=== PATIENT | female | born 1985 | race Caucasian/White ===

== ENCOUNTER 2018-01-12 22:35 | Inpatient (IN) | payer MEDICAID, OTHER, SELFPAY ==
[2018-01-12 23:35] VITALS: BMI 27.1
--- NOTE | 2018-01-13 00:14 | PDOC.FPROB ---
FMR OB H&P: HPI - History of Present Illness Chief Complaint: CTX Indentification: 32yo @ 38.3wks History of Present Illness: This is a 32yo @ 38.3wks by LMP/8.6wk US presenting with CTX. Patient states she began having CTX around 1000 this AM and they have persisted throughout the day. She states she has felt CTX every 10 min. Patient endorses + FM, no LOF, discharge, or vag bleeding. Denies GOMEZ, vision changes, LE swelling. Patient has a repeat CSection scheduled for this Friday. Primary Care Physician: Christiano FMR OB H&P: Current - Care : 3 Para: 2 Gestational age: 38.3wks Due date: repeat c section scheduled for 01/16/18 Dating Criteria: LMP 8.6wk US - OB Labs Blood type: O RH: positive Antibody Screen: negative HIV: negative RPR: negative HepBsAg: negative Rubella: immune Quad screen: unknown Urine drug screen: not done Gonorrhea: negative Chlamydia: negative Pap Smear: wnl on 06/16/17 1 hour gtt: 80 GBS: unknown H&H: 12, 35.5 Platelets: 124 - First Trimester Ultrasound First trimester: position: vertex, female gender, posterior placenta, no abnormalities - Anatomy Survey Anatomy survey: EFW: 64%, FMR OB H&P: History - Past Medical History PMH: none - OB History OB History: G1 - PLTCS for arrest of descent G2 - RLTCS, failed TOLAC @ 36.1wks, spontaneous PTL - [employer] History [employer] History: No hx of abnormal pap, pap this year wnl; menses @ 15/regular, no hx of STI - Surgical History Sx History: CS X 2 - Social History Social History: Denies tobacco, drug or alcohol use - Family History Family History: No hx of T21 or other genetic/inheritable disorders FMR OB H&P: Medications - Current Home Medications: Medication Instructions Recorded Confirmed Type Vit 10/Iron/Folic/Dha 1 tablet PO DAILY 04/06/14 01/12/18 History [Vitafol-OB+DHA Combo Pack] Allergies/Adverse Reactions: Allergies Allergy/AdvReac Type Severity Reaction Status Date / Time No Known Allergies Allergy Verified 01/12/18 23:13 FMR OB H&P: ROS - Review of Systems General: denies: fever/chills, weight/appetite/sleep changes, night sweats, fatigue Eyes: denies: eye pain, vision changes, double vision, scotomas, floaters ENT: denies: nasal congestion Cardiovascular: denies: chest pain, palpitation, edema Respiratory: denies: cough, shortness of breath Gastrointestinal: denies: abdominal pain, indigestion, bloating, cramping, nausea, vomiting, diarrhea, constipation Genitourinary (Female): reports: contractions, vaginal pressure. denies: dysuria, vaginal discharge, vaginal pain, vaginal bleeding FMR OB H&P: Vital Signs - Maternal Vital signs: Vital Signs - First Documented Temp Pulse Resp BP 98.6 F 75 18 119/75 01/12/18 23:03 01/12/18 23:03 01/12/18 23:03 01/12/18 23:03 - Heart Tones Baseline: 140 Variability: moderate Acceleration: absent Deceleration: absent Category: category 2 [place] contractions every: CTX q4-5min FMR OB H&P: Physical Exam - Physical Exam General: NAD, awake, alert and oriented HEENT: normocephalic and atraumatic, PERRLA, EOMI, MMM, no scleral icterus, grossly normal vision, grossly normal hearing Neck: supple, FROM, trachea midline Chest: non-tender to palpation, no lesions Heart: RRR, normal S1/S2, no murmurs/rubs/gallops, pulses present Deviation from normal: trace edema bilaterally General: CTAB, no respiratory distress, good air movement, no wheezing Abdomen: soft, gravid, non-tender, bowel sound present Musculoskeletal: normal gait and station, pulses present, FROM in all four extremities Psychiatric: intact recent and remote memory - Pelvic Exam Vulva: normal hair distribution SVE: 4/70/-2 Heller score: 8 Membranes: intact Presentation: cephalic FMR OB H&P: A/P - Problem List (1) Previous delivery, antepartum Current Visit: Yes Status: Acute Code(s): O34.219 - MATERNAL CARE FOR UNSP TYPE SCAR FROM PREVIOUS DEL (2) Intrauterine Current Visit: Yes Status: Acute Code(s): Z34.90 - ENCNTR FOR SUPRVSN OF NORMAL , UNSP, UNSP TRIMESTER Disposition: IUP, repeat - Pt @ 38.3wks, CTX q3-5min - check /-2 - patient scheduled for repeat on Friday - Will take back to tonight -- discussed risks/benefits and patient agrees to proceed - US performed to confirm posterior placenta - FHT: cat 2 Iron Deficiency Anemia - last Hgb 12 - Will recheck after delivery Alvarado called in as it is her continuity; [facility] adv OB called in Case discussed with Dr. De Discussion: Date/Time: 01/13/189 This H&P was discussed with [] and [] who agree with the above documentation and plan. Attending Addendum - Attending Addendum Date/Time: 01/13/18133 I personally evaluated the patient and discussed the management with Dr. Schwarz and team. I agree with and repeated the History, Examination, Assessment and Plan documented above with any addition or exceptions noted below. Please note FHTs category 1 on last review.
[2018-01-13] MEDS: Lactated Ringer's 1,000 ML IV SCH ×2 (00:35→05:36)
[2018-01-13] MEDS ORDERED: Ondansetron PF 4 MG/2 ML Vial IVP PRN ×2 (00:39→01:16)
[2018-01-13] MEDS ORDERED: Promethazine HCl 25 MG/ML VIAL IM PRN ×2 (00:39→01:16)
[2018-01-13] MEDS ORDERED: Bicitra 30 ML UDCUP PO SCH (00:45)
[2018-01-13] MEDS ORDERED: CEFAZOLIN/Water 2 GM/20 ML SYRINGE SLOW IVP SCH (00:45)
--- NOTE | 2018-01-13 00:46 | PDOC.EVN ---
Event Note - Event Note Event Note: Term with 2 previous cesareans presented with ctx since ~10 AM and was found to be 4 cm dilated in OBT. BSUS revealed cephalic fetus, posterior placenta, adequate AF. After discuss r/b/a/i of repeat including pain , bleeding, infection, damage to bowel, bladder, and other internal organs, need for transfusion and reoperation patient desired to proceed. FHTs cat 1, + accels, no decels. Await anesthesia.
[2018-01-13] MEDS ORDERED: Dexamethasone 4 mg/ml Vial ONE (01:00)
[2018-01-13] MEDS ORDERED: Morphine PF 1 MG/ML SYR ONE (01:00)
[2018-01-13] MEDS ORDERED: Oxytocin 10 UNITS/ML VIAL ONE ×2 (01:00→02:42)
[2018-01-13] MEDS ORDERED: Ondansetron PF 4 MG/2 ML Vial ONE ×2 (01:00→17:13)
[2018-01-13] MEDS ORDERED: Bupivacaine 0.75% W/DEXTROSE 8.25% 2 ML AMP ONE (01:00)
[2018-01-13] MEDS ORDERED: PHENYLEPHRINE-NS 100 MCG/ML 10 ML SYRINGE ONE ×2 (01:00→17:13)
[2018-01-13] MEDS ORDERED: Lidocaine 1% PF 5 ML VIAL ONE ×2 (01:00→01:01)
[2018-01-13] MEDS ORDERED: CEFAZOLIN 2 GM/50 ML-DEXTROSE 2 GM in Premix Bag 1 BAG IVPB SCH (01:00)
[2018-01-13 01:08] LABS: Mean Corpuscular HGB CONC 34.8 g/dL (32.0-36.0); Mean Corpuscular Hemoglobin 32.5 pg (27.0-31.0); Mean Corpuscular Volume 93.4 fL (78.0-98.0); Mean Platelet Volume 11.5 fL (7.4-10.4); Platelet Count 124 thou/uL (130-400); RBC Distribution Width 12.7 % (11.5-14.5); Red Blood Cell (RBC) Count 4.61 mill/uL (4.20-5.40); White Blood Cell (WBC) Count 10.2 thou/uL (4.8-10.8)
[2018-01-13] MEDS ORDERED: Ketorolac Tromethamine 30 MG/ML VIAL IVP PRN (01:16)
[2018-01-13] MEDS ORDERED: diphenhydrAMINE 50 MG/ML VIAL IVP PRN (01:16)
[2018-01-13] MEDS ORDERED: Naloxone HCl 0.4 mg/ml Vial IVP PRN ×2 (01:16)
[2018-01-13] MEDS ORDERED: Meperidine HCl/PF 25 MG/ML VIAL SLOW IVP PRN (01:16)
[2018-01-13] MEDS ORDERED: Ondansetron HCl/PF 4 MG/2 ML Vial IVP PRN (01:16)
[2018-01-13] MEDS ORDERED: L&D-Morphine 4 MG/ML VIAL SLOW IVP PRN (01:16)
[2018-01-13] MEDS ORDERED: HYDROmorphone 2 MG/ML VIAL SLOW IVP PRN (01:16)
[2018-01-13] MEDS ORDERED: Promethazine HCl 25 MG SUPP PR PRN (01:16)
[2018-01-13] MEDS ORDERED: Naloxone HCl 0.4 mg/ml Vial IV PRN (01:16)
[2018-01-13] MEDS ORDERED: Hydrocerin (Eucerin) Cream 120 gm Jar TOP PRN (01:16)
[2018-01-13] MEDS ORDERED: Communication Order-Pharmacy FS SCH (01:30)
[2018-01-13] MEDS ORDERED: Ketorolac Tromethamine 30 MG/ML VIAL IVP SCH (01:30)
[2018-01-13 01:57] LABS: HBSAg Index 0.25 S/CO (0-0.99); Hep B Surf Ag Non-Reactive S/CO (NonReactive)
[2018-01-13] MEDS ORDERED: Fentanyl 100 MCG/2 ML VIAL ONE (02:20)
[2018-01-13] MEDS ORDERED: diphenhydrAMINE 25 MG CAP PO PRN (02:33)
[2018-01-13] MEDS ORDERED: Acetaminophen 325 MG TAB PO PRN (02:33)
[2018-01-13] MEDS ORDERED: Misoprostol 200 MCG TAB PR PRN (02:54)
--- NOTE | 2018-01-13 03:40 | PDOC.OPDEL ---
OB Operative/Delivery Note Delivery Dr/Surgeon: Kenisha Hoskins Assist: Candice Alvarado Pre-Delivery Diagnosis: active labor Procedure/Post Delivery Dx: classical CS Weeks gestation: 38 (38w4d) Anesthesia: spinal - Findings A Sex: female - 1 min: 8 - 5 min: 9 - Additional Findings/Plan Placenta delivered: manual removal Estimated blood loss: 1200 mL Compilations/Other Findings: Preoperative Diagnosis: 1)Term intrauterine 2)Previous x2 3)Gestational Thrombocytopenia Postoperative Diagnosis: 1)Term intrauterine 2)Previous x2 3)Gestational Thrombocytopenia 4)Extensive uterine adhesions Anesthesia: spinal Indications: The patient is a 32 year old female at 38 4/7 weeks gestation with 2 prior sections who presents in labor. Procedure in Detail: After risks, benefits, and alternatives were explained to the patient, she gave informed consent. Pre-operative antibiotics included Cefazolin 2 gram IV. The patient was taken to the operating room and spinal anesthesia was initiated. She was placed in the supine position with a left tilt and prepped and draped in usual sterile fashion. A Pfannenstiel incision was made with a scalpel and carried down to the level of the fascia which was sharply nicked. The fascial cut was extended bilaterally with Kaiser scissors. The superior edge of the cut fascia was elevated with Kenton clamps and the underlying rectus muscles were sharply and bluntly dissected free. The recti were divided digitally and retracted manually. The peritoneum was entered bluntly and retracted manually. Extensive adhesions were found on the anterior aspect of the lower uterine segment. Metzenbaum scissors were used to dissect the adhesions free, however due to the extent of them, Dr. Hoskins was asked to come to the operating room as a consult. See Dr. Hoskins's operative note for complete details of this portion of the operation. Bladder blade was placed and then he made a classical incision using a scalpel and the uterus was entered bluntly. Clear amniotic fluid was noted. The hysterotomy was extended manually in a lateral fashion. The was noted to be vertex and was easily delivered by fundal pressure. Mouth and nares were bulb suctioned. Cord clamped and cut and grossly normal female was handed to waiting nurse. Cord blood was obtained. Placenta was manually extracted, found to be intact with 3 vessel cord and discarded. The uterus was externalized and the endometrium was curetted with a dry lap. The uterus was closed with a running locking 1-0 Monocryl suture followed by an imbricating layer. A [id number] suture with 1-0 Chromic was used for better hemostasis. Following this, there was still bleeding from the hysterotomy and areas where the adhesions were taken down from the myometrium, so Floseal was used over the bleeding portions of the hysterotomy and pressure was held to assist hemostasis. Two total syringes of floseal were used. Following this hemostasis was noted. The uterus was internalized and the hysterotomy was found to have a small area of oozing and so surgiseal was placed over this. Following this hemostasis was noted. The fascia was closed with a running non-locking 0-PDS suture. The subcutaneous tissue was irrigated and there were no bleeders. The skin was closed with 4-0 Vicryl and a pressure dressing was placed. All counts were correct. The patient tolerated the procedure well and was taken to the recovery room in stable condition. Quantitative Blood Loss: 1005 ml Specimens: Cord blood sent to lab for blood type Findings: Grossly normal Female with APGARs of 8 and 9 at 1 and 5 minutes respectively. Grossly normal placenta with 3 vessel cord discarded. Drains: Cervantes to gravity draining clear urine Post delivery plan: routine recovery <Mary Alvarado - Last Filed: 01/13/18 03:27> Attending Addendum - Attending Addendum Date/Time: 01/13/18 0656 I personally evaluated the patient and discussed the management with Dr. Alvarado. I was present for the entire surgery. Dr. Hoskins scrubbed for dissection, hysterotomy, and closure of fascia. See his op report for additional details. <Troy De - Last Filed: 01/13/18 06:57>
[2018-01-13] MEDS ORDERED: Meperidine HCl/PF 25 MG/ML VIAL ONE (03:48)
[2018-01-13 04:46] LABS: Syphilis Antibody Nonreactive (Nonreactive); Syphilis Antibody Index 0.02 S/CO (<1.00 Non-Reactive)
[2018-01-13] MEDS ORDERED: Acetaminophen 1,000 MG in Premix Bag 1 BAG IVPB PRN (06:13)
--- NOTE | 2018-01-13 07:05 | PDOC.EVN ---
Event Note - Event Note Event Note: Post OP check Ms. Ruelas is resting comfortably in bed, she reports that her pain is adequately controlled. bleeding similar to menstruation, denies GOMEZ/SOB/CP. denies flatus or ambulation. Cervantes in place CV: RRR, S1S2 P: CTAB Abd: non painful, no distention, +BS, Uterus firm at umbilicus Travel Pt: no active bleeding observed Skin: dressing c/d/i s/p classical cs - continue post care and monitoring
[2018-01-13] MEDS ORDERED: Adacel (T-DAP) 0.5 ML VIAL IM ONE (09:00)
[2018-01-13 11:01] LABS: #Lymphocytes 1.2 thou/uL (1.20-3.40); #Monocytes 0.6 thou/uL (0.11-0.59); #Neutrophils 11.4 thou/uL (1.40-6.50); %Basophils 0.1 % (0.0-1.0); %Eosinophils 0.2 % (0.0-10.0); %Lymphocytes 9.3 % (21.0-51.0); %Monocytes 4.5 % (0.0-10.0); %Neutrophils 85.8 % (42.0-75.0); Band 25 % (5-11); Eosinophils 1 % (0-10); Hemoglobin 13.5 g/dL (12.0-16.0); Lymphocytes 5 % (21-51); MDiff Complete? YES; Mean Corpuscular Hemoglobin 31.2 pg (27.0-31.0); Mean Corpuscular Volume 94.4 fL (78.0-98.0); Mean Platelet Volume 11.2 fL (7.4-10.4); Monocytes 2 % (0-10); Neutrophil 63 % (42-75); Platelet Count 131 thou/uL (130-400); RBC Distribution Width 12.5 % (11.5-14.5); RBC Morphology Normal; Reactive Lymphocytes 4 % (0-10); Red Blood Cell (RBC) Count 4.33 mill/uL (4.20-5.40); White Blood Cell (WBC) Count 13.3 thou/uL (4.8-10.8)
--- NOTE | 2018-01-13 11:28 | OP ---
DATE OF SURGERY: 01/13/2018 TIME OF SERVICE: 0200 hours. TIME OF DICTATION: 0255 hours. PREOPERATIVE DIAGNOSIS: Prior section x2, in labor for repeat. POSTOPERATIVE DIAGNOSES: Prior section x2, in labor for repeat; extremely dense adhesions o f the bladder and omentum to the lower uterine segment. PROCEDURE: Repeat section with vertical uterine incision and repair. SURGEON: Hilario Hoskins M.D. PLATE MOLDER: Troy De MD ESTIMATED BLOOD LOSS: Approximately 5271-5545 mL. DRAINS: Cervantes to gravity with clear urine. COMPLICATIONS: None. OPERATIVE FINDINGS: 1. Intraoperative consultation with dense adhesions precluding access to lower uterine segment. 2. A vertical uterine incision extended cephalad with bandage scissors. 3. Female infant, cephalic presentation, clear fluid, to nursery, weight and Apgars pending. 4. A 2-layer closure of the uterus with hemostasis achieved with Surgicel and FloSeal. DISPOSITION: Recovery room with extended recovery and observation. DESCRIPTION OF OPERATIVE PROCEDURE: I was consulted intraoperatively and ended up performing the sai e. Upon my presentation, which was within 5 minutes of consultation, apparently the surgical procedu re had been underway for approximately 20-30 minutes. Upon presentation, Dr. De had accessed entry into the abdominal cavity through the fascia in a Pfannenstiel incision, which was following a previous Pfannenstiel x2. The bladder and omentum was noted to be densely adhesed to the lower uter ine segment. Significant edema, swelling, and failure to be able to delineate tissue planes were not ed by myself visually. At this point in time, I scrubbed into the case, as the procedure had been pr oceeding on for quite some time without delivery of the and it was obvious that the tissue manny mena were not going to be able to be well developed. A decision was made to go ahead and proceed with a vertical uterine incision. The bladder and omentum were pulled all the way using a bladder blade. A scalpel was used to make a low vertical incision, which was then extended superiorly/cephalad usi ng the bandage scissors until an adequate size was obtained for delivery of the infant. Water was br oken and clear fluid was noted. The 's head was elevated through the hysterotomy, delivered. Cord clamped and cut and handed off to nursery in attendance. Usual cord blood samples obtained. Th e placenta was removed manually. It was noted to be posterior and fundal and was not involving the l ower uterine segment in any shape and form. The low vertical hysterotomy was noted be without extens ion. There had been quite a bit of deserosalization of the uterus and attempted to develop a bladder flap prior to my presentation, which left the middle aspect of the vertical incision lateral to it, especially quite wide and raw edged. The hysterotomy was closed using a running-locking suture of 0 Monocryl x2 layers. Small areas of bleeding were achieved to be hemostatic with [id number] of # 1 chromic. The raw areas that were noted were not amenable to suture closure and decision was made t o apply FloSeal. Two syringes of FloSeal were applied and pressure held against them with a moist la p sponge for approximately 4-5 minutes. After removal of the moistened lap sponge after 4-5 minutes, good hemostasis was noted. At the level of the bladder, inspection was carried out. No evidence of cystotomy was noted. There was one area anteriorly where during the initial dissection, prior to my presentation to the room, mistakenly identified down towards the bladder; however, it did not seem t o involve the muscularis, serosa or mucosa of the bladder. Clear urine was noted in the Cervantes and go od urine output was noted during the procedure. Small areas of bleeding along the bladder blad kavitha flap were rendered hemostatic using judicious monopolar cautery. The uterus was placed back insi de the abdominal cavity. Reinspection of hysterotomy revealed it to be dry and Surgicel applied for good measure across this. The omentum was pulled up over the hysterotomy as well. Counts were corre ct at this point in time and the rectus was noted to be dry. The fascia reapproximated using an 0 PD S suture x2. At this point in time, Dr. De took over the rest of the closure of the case. A gain, estimated blood loss was approximately 2904-1112 mL during my presence in the operating room. QBL pending.
[2018-01-13] MEDS: HYDROcodone/Acetaminophen 5/325 mg Tablet PO PRN (16:47)
[2018-01-13] MEDS ORDERED: Dexamethasone 20 MG/5 ML VIAL ONE (17:13)
[2018-01-13] MEDS: Ibuprofen 800 MG TAB PO SCH (21:12)
--- NOTE | 2018-01-14 06:27 | PDOC.PP ---
Post Progress Note Post Day #: 1 Subjective: 32 y/o ->2103 delivered at 38.4 WGA via repeat section with classical incision. Patient reports some pain in her abdomen and around her incision. She reports a small amount of bleeding. She reports that she has been eating without difficulty, but has only really tried liquids and some cookies. She denies BM or flatus. She is voiding without difficulty after pacheco was removed. She is breast feeding without difficulty. She has been ambulating some to the bathroom. PO intake tolerated: yes Flatus: no Ambulation: yes Vital Signs (12 hours) Temp Pulse Resp BP Pulse Ox 01/13/18 20:00 97.6 F 84 20 110/65 99 Weight Weight 63.049 kg - Physical Examination General: NAD Cardiovascular: no m/r/g, RRR Respiratory: clear to auscultation bilaterally, non-labored breathing Abdominal: + bowel sounds, lochia (minimal), no distention, appropriately TTP Fundus firm & at: 1 cm above the umbilicus and deviated to the right Skin: CS incision dry & intact, no rash Neurological: no gross focal deficits Psychiatric: A&Ox3, normal affect Result Diagrams: 01/13/18 10:16 Additional Labs: Post Labs Blood Type O POSITIVE 01/13/18 00:35 Hep Bs Antigen Non-Reactive S/CO (NonReactive) 01/13/18 00:35 (1) Term delivered Code(s): O80 - ENCOUNTER FOR FULL-TERM UNCOMPLICATED DELIVERY Status: Acute Comment: -Continue routine PP care -Encourage breast feeding -Encourage ambulation -Pain control with ibuprofen scheduled and prn norco -Post- hemaglobin 13.5, will repeat today as this was only a few hours after the section (2) History of classical section Code(s): Z98.891 - HISTORY OF UTERINE SCAR FROM PREVIOUS SURGERY Status: Acute Comment: Patient had classical incision due to extensive adhesions of bladder and omentum to lower uterine segment. -Counseled extensively on future contraception, pt thinks she wants to go with OCP's as she has done them before and liked them, but will consider other options such as LARC's <Mary Alvarado - Last Filed: 01/14/18 06:50> Vital Signs (12 hours) Temp Pulse Resp BP Pulse Ox 01/14/18 08:03 98.5 F 86 20 102/57 L 96 Weight Weight 63.049 kg Result Diagrams: 01/14/18 07:35 Additional Labs: Post Labs Blood Type O POSITIVE 01/13/18 00:35 Hep Bs Antigen Non-Reactive S/CO (NonReactive) 01/13/18 00:35 <Celeste Lisa - Last Filed: 01/14/18 11:02> Attending Addendum - Attending Addendum Date/Time: 01/14/18 1100 I personally evaluated the patient and discussed the management with Dr. Alvarado I agree with the History, Examination, Assessment and Plan documented above with any addition or exceptions noted below- Patient without complaints. Tolerating regular diet. Voiding/(+) flatus. Afebrile VSS. 1) POD#1 s/p repeat C /S with classical incision- Continue routine care. H/H stable. <Celeste Lisa - Last Filed: 01/14/18 11:02>
[2018-01-14] MEDS: Ibuprofen 800 MG TAB PO SCH ×3 (06:48→21:36)
[2018-01-14 07:54] LABS: Hemoglobin 12.4 g/dL (12.0-16.0); Mean Corpuscular HGB CONC 33.7 g/dL (32.0-36.0); Mean Corpuscular Hemoglobin 31.9 pg (27.0-31.0); Mean Corpuscular Volume 94.7 fL (78.0-98.0); Mean Platelet Volume 10.2 fL (7.4-10.4); Platelet Count 116 thou/uL (130-400); RBC Distribution Width 12.6 % (11.5-14.5); White Blood Cell (WBC) Count 10.2 thou/uL (4.8-10.8)
[2018-01-14] MEDS: HYDROcodone/Acetaminophen 5/325 mg Tablet PO PRN ×2 (09:45→17:16)
[2018-01-15] MEDS: Ibuprofen 800 MG TAB PO SCH (06:23)
[2018-01-15 08:15] VITALS: BP 96/59; TEMP 97.7
--- NOTE | 2018-01-15 08:49 | PDOC.PP ---
Post Progress Note Post Day #: 2 Subjective: Patient doing well. Reports ambulating and eating without difficulty. She endorses flatus and reports minimal lochia and abdominal pain. She has been trying to breast feed, but doesn't think she is producing enough milk, so she has been bottle feeding as well. PO intake tolerated: yes Flatus: yes Ambulation: yes Vital Signs (12 hours) Temp Pulse Resp BP Pulse Ox 01/15/18 08:14 97.7 F 76 20 96/59 L 95 Weight Weight 63.049 kg - Physical Examination General: NAD Cardiovascular: no m/r/g, RRR Respiratory: clear to auscultation bilaterally, non-labored breathing Abdominal: + bowel sounds, lochia (minimal), no distention, appropriately TTP Fundus firm & at: level of umbilicus Skin: CS incision dry & intact, no rash Neurological: no gross focal deficits Psychiatric: A&Ox3, normal affect Result Diagrams: 01/14/18 07:35 Additional Labs: Post Labs Blood Type O POSITIVE 01/13/18 00:35 Hep Bs Antigen Non-Reactive S/CO (NonReactive) 01/13/18 00:35 (1) Term delivered Code(s): O80 - ENCOUNTER FOR FULL-TERM UNCOMPLICATED DELIVERY Status: Acute Comment: -Continue routine PP care -Encourage breast feeding -Encourage ambulation -Pain control with ibuprofen scheduled -Post- hemaglobin WNL (2) History of classical section Code(s): Z98.891 - HISTORY OF UTERINE SCAR FROM PREVIOUS SURGERY Status: Acute Comment: Patient had classical incision due to extensive adhesions of bladder and omentum to lower uterine segment. -Counseled extensively on future contraception, pt thinks she wants to go with OCP's as she has done them before and liked them, but will consider other options such as LARC's - Assessment/Plan d/c home today, f/u in 2 weeks at Clinic <Mary Alvarado - Last Filed: 01/15/18 08:47> Vital Signs (12 hours) Temp Pulse Resp BP Pulse Ox 01/15/18 08:14 97.7 F 76 20 96/59 L 95 Weight Weight 63.049 kg Result Diagrams: 01/14/18 07:35 Additional Labs: Post Labs Blood Type O POSITIVE 01/13/18 00:35 Hep Bs Antigen Non-Reactive S/CO (NonReactive) 01/13/18 00:35 <Celeste Lisa - Last Filed: 01/15/18 11:10> Attending Addendum - Attending Addendum Date/Time: 01/15/18 0927 I personally evaluated the patient and discussed the management with Dr. Alvarado I agree with the History, Examination, Assessment and Plan documented above with any addition or exceptions noted below - Patient without complaints. Ambulating/voiding. Tolerating diet. Afebrile VSS. A/P: 1) POD#2 s/p repeat C/S - plan to d/c home today. Follow-up at [facility] in 3-4 days for staple removal. <Celeste Lisa - Last Filed: 01/15/18 11:10>
== END 2018-01-15 13:30 | disposition home or self-care (01) | DRG 787 ==
LOC: L&D/OP 22:35 → L&D 01-13 00:03 → 3SW 01-13 05:35
PROVIDERS: ADMIT Emergency Medicine; ATTEND Emergency Medicine
PROC: 10D00Z0 Extraction of Products of Conception, High, Open Approach (ICD-10-PCS; principal; 2018-01-13)
DX: O75.82 Onset (spontaneous) of labor after 37 completed weeks of gestation but before 39 completed weeks gestation, with delivery by (planned) cesarean section (principal); O99.12 Other diseases of the blood and blood-forming organs and certain disorders involving the immune mechanism complicating childbirth; Z3A.38 38 weeks gestation of pregnancy; Z37.0 Single live birth; D69.6 Thrombocytopenia, unspecified
CPT/HCPCS: 36415; 51702; 76815; 85027; 86780; 86850; 86900; 86901; 87340; 99285; J0131; J1100; J2001; J2175; J2274; J2310; J2405; J2590; J3010; J3490

== ENCOUNTER 2022-12-24 01:59 | Observation (INO) | payer SELFPAY ==
[2022-12-24] MEDS ORDERED: Ondansetron PF 4 MG/2 ML Vial IVP PRN (02:59)
[2022-12-24] MEDS ORDERED: Morphine 4 MG/ML VIAL SLOW IVP PRN (02:59)
[2022-12-24 03:05] VITALS: BMI 21.1
[2022-12-24] MEDS: D5 1/2 NS w/20 mEq KCL 1,000 ML IV SCH ×3 (03:24→21:13)
[2022-12-24] MEDS ORDERED: Piperacillin/Tazobactam 3.375 GM in Sodium Chloride 0.9% 100 ML IVPB SCH ×2 (03:30→04:00)
[2022-12-24 08:50] LABS: Hematocrit 39.1 % (36.0-47.0); Hemoglobin 12.7 g/dL (12.0-16.0); Mean Corpuscular HGB CONC 32.5 g/dL (32.0-36.0); Mean Corpuscular Hemoglobin 29.9 pg (27.0-31.0); Mean Platelet Volume 12.9 fL (7.4-10.4); Platelet Count 136 10x3/uL (130-400); RBC Distribution Width 13.4 % (11.5-14.5); Red Blood Cell (RBC) Count 4.25 mill/uL (4.20-5.40); White Blood Cell (WBC) Count 11.3 10x3/uL (4.8-10.8)
[2022-12-24 08:51] LABS: Delete Auto Diff?? YES; Manual Diff?? YES
[2022-12-24] MEDS: Piperacillin/Tazobactam 3.375 GM in Sodium Chloride 0.9% 100 ML IVPB SCH ×3 (08:53→21:19)
[2022-12-24] MEDS: Famotidine/PF 20 mg/2ml Vial SLOW IVP SCH ×2 (08:53→21:29)
[2022-12-24 09:05] LABS: INR-International Normal Ratio 1.2; PTT 35.7 sec (22.9-36.1); Prothrombin Time 15.9 sec (12.0-14.7)
[2022-12-24 09:21] LABS: ALT (SGPT) 27 U/L (8-55); AST (SGOT) 32 U/L (5-34); Albumin 3.9 g/dL (3.5-5.0); Alkaline Phosphatase 49 U/L (40-110); Anion Gap 8 mmol/L (10-20); BUN (Urea Nitrogen) 8 mg/dL (7.0-18.7); Bilirubin, Direct 0.3 mg/dL (0.1-0.3); Bilirubin, Total 0.6 mg/dL (0.2-1.2); Calc. Creatinine Clearance 87 mL/min (70-130); Calcium 8.2 mg/dL (7.8-10.44); Carbon Dioxide 26 mmol/L (22-29); Chloride 105 mmol/L (98-107); Estimated GFR 105; Glucose 154 mg/dL (70-105); Lipase 28 U/L (8-78); Potassium 3.9 mmol/L (3.5-5.1); Protein, Total 6.4 g/dL (6.0-8.3); Sodium 135 mmol/L (136-145)
[2022-12-24 10:00] LABS: Band 7 % (5-11); Burr Cells SLIGHT = 2-5 cells HPF (0-1); CellaVision Operator ID LAB.GE; Lymphocytes 7 % (21-51); Metamyelocyte 1 % (0-0); Monocytes 2 % (0-10); Neutrophil 83 % (42-75); Platelet Adequacy Comment Platelets Normal; Polychromasia SLIGHT = 2-3 cells HPF (0-2); Total Cell Count 101
[2022-12-24] MEDS ORDERED: FLU VACC QS2023-24(6MOS UP)/PF 60 MCG/0.5 ML SYRINGE IM ONE (10:00)
[2022-12-24] MEDS: Sodium Chloride 0.9% 1,000 ML IV SCH ×2 (14:25→18:45)
[2022-12-24] MEDS ORDERED: EPINEPHrine 1 MG/ML VIAL ONE (15:24)
[2022-12-24] MEDS ORDERED: Bupivacaine 0.25% HCL 30 ML VIAL ONE (15:24)
[2022-12-24] MEDS ORDERED: Dexmedetomidine 200 MCG/2 ML VIAL ONE (15:29)
[2022-12-24] MEDS ORDERED: fentaNYL PF 100 MCG/2 ML SYRINGE ONE (15:30)
[2022-12-24] MEDS ORDERED: SUGAMMADEX SODIUM 200 MG/2 ML VIAL ONE (15:33)
[2022-12-24 15:55] LABS: Pregnancy Test - Urine (BHCG) Negative (Negative); Specific Gravity 1.008 (1.002-1.036)
[2022-12-24 15:56] LABS: Pregu Control Background? CLEAR/WHITE (CLR/WHITE); Pregu Control Bar Appear? YES (CONTROL BAR)
[2022-12-24] MEDS ORDERED: Piperacillin/Tazobactam 3.375 GM VIAL ONE (15:59)
[2022-12-24] MEDS ORDERED: Sodium Chloride 0.9% 100 ML ONE (16:00)
[2022-12-24] MEDS ORDERED: Glycopyrrolate 0.2 MG/ML 5 ML SYRINGE ONE (16:04)
[2022-12-24] MEDS ORDERED: Rocuronium Bromide 10 MG/ML (10ML VIAL) ONE (16:04)
[2022-12-24] MEDS ORDERED: Ondansetron PF 4 MG/2 ML Vial ONE ×2 (16:04→17:47)
[2022-12-24] MEDS ORDERED: PROPOFOL 200 MG/20 ML VIAL ONE (16:04)
[2022-12-24] MEDS ORDERED: Dexamethasone 20 MG/5 ML VIAL ONE (16:04)
[2022-12-24] MEDS ORDERED: NEOSTIGMINE 3 MG/3 ML SYR 3 MG/3 ML SYRINGE ONE (16:04)
[2022-12-24] MEDS ORDERED: ePHEDrine Sulfate 50 MG/10 ML VIAL ONE (16:04)
[2022-12-24] MEDS ORDERED: Lidocaine 1% PF 5 ML VIAL ONE (16:04)
[2022-12-24] MEDS ORDERED: PHENYLEPHRINE-NS 100 MCG/ML 10 ML SYRINGE ONE (16:04)
[2022-12-24] MEDS ORDERED: Ketorolac Tromethamine 30 MG/ML VIAL ONE (16:04)
[2022-12-24] MEDS ORDERED: Promethazine HCl 25 MG/ML VIAL IM PRN (17:36)
[2022-12-24] MEDS ORDERED: Meperidine HCl/PF 25 MG/ML VIAL SLOW IVP PRN (17:36)
[2022-12-24] MEDS ORDERED: HYDROmorphone 2 MG/ML VIAL SLOW IVP PRN (17:36)
[2022-12-24] MEDS ORDERED: Ondansetron HCl/PF 4 MG/2 ML Vial IVP PRN (17:36)
[2022-12-24] MEDS ORDERED: fentaNYL 50 mcg/mL 1 mL Vial ONE (17:59)
[2022-12-24] MEDS ORDERED: traMADol HCl 50 MG TAB PO PRN (21:18)
[2022-12-24] MEDS: traMADol HCl 50 MG TAB PO SCH (21:28)
[2022-12-24] MEDS ORDERED: Acetaminophen 500 MG TAB PO SCH (22:00)
[2022-12-25] MEDS: Sodium Chloride 0.9% 1,000 ML IV SCH (01:46)
[2022-12-25] MEDS: D5 1/2 NS w/20 mEq KCL 1,000 ML IV SCH (01:46)
[2022-12-25] MEDS: traMADol HCl 50 MG TAB PO SCH (05:18)
[2022-12-25] MEDS ORDERED: Acetaminophen 500 MG TAB PO SCH (06:00)
[2022-12-25] MEDS: Famotidine/PF 20 mg/2ml Vial SLOW IVP SCH (08:16)
[2022-12-25 08:37] VITALS: TEMP 97.9
[2022-12-25 12:18] VITALS: BP 100/64
== END 2022-12-25 12:50 | disposition home or self-care (01) ==
LOC: SURG A 02:07
PROVIDERS: ADMIT Student in an Organized Health Care Education/Training Program; ATTEND Student in an Organized Health Care Education/Training Program
PROC: 0FT44ZZ Resection of Gallbladder, Percutaneous Endoscopic Approach (ICD-10-PCS; principal; 2022-12-25)
DX: K80.12 Calculus of gallbladder with acute and chronic cholecystitis without obstruction (principal); Z79.899 Other long term (current) drug therapy
CPT/HCPCS: 36415; 80048; 80076; 81025; 83690; 85025; 85610; 85730; 86850; 86900; 86901; 88304; 96365; 96366; 96375; C1889; G0378; J0171; J1100; J1885; J2270; J2405; J2543; J2704; J3010; J3480; J3490; S0020; S0028